=== PATIENT | female | born 2005 | race Caucasian/White ===

== ENCOUNTER 2023-01-08 12:38 | Emergency (ER) | payer OTHER, SELFPAY ==
[2023-01-08 12:58] VITALS: BP 123/77; PULSE 102; RESP 16; TEMP 36.4; O2SAT 99
--- NOTE | 2023-01-08 15:23 | ED.ANXIETY ---
HPI - Anxiety General Chief Complaint: Anxiety Stated Complaint: anxiety/depression Time Seen by Provider: 01/08/23 14:34 Source: patient Mode of arrival: ambulatory Limitations: no limitations History of Present Illness HPI narrative: Patient is a 17 y/o female who presents to the ED with c/o anxiety. Patient reports she found her grandfather unexpectedly yesterday at her grandparents house. Patient reports she has been hysterical and increasingly anxious since his passing. She has been staying with family, but one of her family members is leaving today and she has been anxious about this, as well. Patient does have a long history of anxiety and mental health disorders. She does see a psychiatrist regularly. She has previously been prescribed Xanax 0.5mg and had a 30 day Rx filled on 12/21. Patient reports she has since misplaced this prescription and has not been able to find it. She has not tried counting taking her psychiatrist. She feels she needs help with her anxiety currently. She denies any SI, HI, AVH. Denies any thoughts of wanting to harm herself in any way. Related Data Allergies Allergy/AdvReac Type Severity Reaction Status Date / Time No Known Allergies Allergy Verified 01/08/23 12:39 Review of Systems Review of Systems: CONSTITUTIONAL: Denies fever, chills, or sweats. CARDIOVASCULAR: Denies chest pain. RESPIRATORY: Denies dyspnea. GASTROINTESTINAL: Denies abdominal pain, nausea, vomiting, or diarrhea. NEUROLOGIC: Denies headache, numbness, or weakness. PSYCHIATRIC: See HPI. All systems reviewed & are unremarkable except as noted in HPI and below PMFSH Past Medical History Medical History (Updated 01/08/23 @ 18:58 by Olga Urias PA-C) Anxiety Depression Exam Narrative: GENERAL: Well appearing, well-nourished, non-toxic, in no acute distress. HEAD: Normocephalic, atraumatic. NECK: Supple. No adenopathy, no masses. RESPIRATORY: Airway patent, respirations nonlabored. Clear to auscultation bilaterally, no rales, rhonchi, wheezing. CARDIOVASCULAR: Regular rate and rhythm without murmurs, rubs, or gallops. Radial pulses 2+ and equal bilaterally. MUSCULOSKELETAL: Moves all extremities. Strength/ROM intact without gross deformities. SKIN: Warm, dry, normal color. No rashes. NEURO: A&O X3. Speech clear. Cranial nerves II-XII grossly intact. Steady gait. No ataxic movements. PSYCHIATRIC: Anxious, tearful, appropriate insight into mental illness. Normal interaction. Course Vital Signs Vital signs: Vital Signs Temperature 97.6 F 01/08/23 12:58 Pulse Rate 102 H 01/08/23 12:58 Respiratory Rate 16 01/08/23 12:58 Blood Pressure 123/77 01/08/23 12:58 Pulse Oximetry 99 01/08/23 12:58 Oxygen Delivery Room Air 01/08/23 12:58 Temperature 97.6 F 01/08/23 12:58 Pulse Rate 102 H 01/08/23 12:58 Respiratory Rate 16 01/08/23 12:58 Blood Pressure 123/77 01/08/23 12:58 Pulse Oximetry 99 01/08/23 12:58 Oxygen Delivery Room Air 01/08/23 12:58 MDM - Anxiety MDM Narrative Medical decision making narrative: Patient presented to ED after finding her grandfather yesterday, reporting worsening anxiety, difficulty coping. Patient unable to find her prescribed Xanax. Patient does have history of anxiety. I had a long discussion with patient about appropriate channels for having prescriptions refilled. I discussed that while anxiety prescriptions are not typically refilled through the ED, that I could provide something for anxiety while here in the ED. She does have a ride home. Patient was agreeable to this. Given small dose of Ativan here with improvement of anxiety. I advised patient to contact psychiatrist to see if there is an on-call weekend number, otherwise contact on Tuesday morning to make follow-up appointment for further evaluation and further prescription refill. Patient denies any SI or HI. I discussed that if should patient's
[2023-01-08] MEDS: LORazepam INJ (*CRX) 2 MG/ML VIAL 0.5 MG IM (15:51)
== END 2023-01-08 15:56 | disposition home or self-care (01) ==
PROVIDERS: Emergency Provider Physician Assistant
DX: F43.22 Adjustment disorder with anxiety (principal); F32.A Depression, unspecified
CPT/HCPCS: 96372; 99283; J2060